=== PATIENT | female | born 1935 | race African-American/Black ===

== ENCOUNTER → 2016-10-21 | Outpatient (CLI) | payer MEDICARE ==
[~2016-10-21] MED LIST: CALCITRIOL0.5 MCG PO; CIPRO PO; ELIQUIS5 MG PO; FUROSEMIDE40 MG PO; GLIPIZIDE 5 MG PO; HYDROCHLOROTHIAZIDE PO; LISINOPRIL PO; LOW DOSE ASPIRI81 M1 PO; METFORMIN 500 MG PO; METOPROLOL TAR25 MG PO; NORCO 5/325 TAB1 TAB PO; NORVASC10 MG PO; PRILOSEC 20 MG PO; SIMVASTATIN40 MG PO; VITAMIN D250000 UNIT PO; ZOCOR 20 MG PO
[2016-10-21 10:38] LABS: HEMATOCRIT 30.1 % (35.0-45.0); HEMOGLOBIN 9.7 gm/dL (12.0-16.0)
== END | disposition home or self-care (01) ==
LOC: CLAB 09:34 → CSSDAY 09:34
PROVIDERS: Internal Medicine Nephrology
DX: N18.4 Chronic kidney disease, stage 4 (severe) (principal); D63.1 Anemia in chronic kidney disease; Z79.899 Other long term (current) drug therapy
CPT/HCPCS: 36415; 85014; 85018; 96372; J0885

== ENCOUNTER → 2016-11-04 | Outpatient (CLI) | payer MEDICARE ==
[2016-11-04 09:42] LABS: HEMATOCRIT 31.7 % (35.0-45.0); HEMOGLOBIN 10.3 gm/dL (12.0-16.0)
== END | disposition home or self-care (01) ==
LOC: CSSDAY 09:17
PROVIDERS: Internal Medicine Nephrology
DX: N18.4 Chronic kidney disease, stage 4 (severe) (principal); D63.1 Anemia in chronic kidney disease; Z79.899 Other long term (current) drug therapy
CPT/HCPCS: 36415; 85014; 85018; 96372; J0885

== ENCOUNTER → 2016-11-18 | Outpatient (CLI) | payer MEDICARE ==
[2016-11-18 09:36] LABS: HEMATOCRIT 32.4 % (35.0-45.0); HEMOGLOBIN 10.5 gm/dL (12.0-16.0)
== END | disposition home or self-care (01) ==
LOC: CSSDAY 08:41
PROVIDERS: Internal Medicine Nephrology
DX: N18.4 Chronic kidney disease, stage 4 (severe) (principal); D63.1 Anemia in chronic kidney disease
CPT/HCPCS: 85014; 85018; 96372; J0885

== ENCOUNTER → 2016-12-02 | Outpatient (CLI) | payer MEDICARE ==
[2016-12-02 09:05] LABS: HEMATOCRIT 34.5 % (35.0-45.0); HEMOGLOBIN 11.3 gm/dL (12.0-16.0)
== END | disposition home or self-care (01) ==
LOC: CSSDAY 08:00
PROVIDERS: Internal Medicine Nephrology
DX: N18.4 Chronic kidney disease, stage 4 (severe) (principal); D63.1 Anemia in chronic kidney disease
CPT/HCPCS: 36415; 85014; 85018; J0885

== ENCOUNTER → 2016-12-16 | Outpatient (CLI) | payer MEDICARE ==
[2016-12-16 09:14] LABS: HEMATOCRIT 34.3 % (35.0-45.0)
== END | disposition home or self-care (01) ==
LOC: CSSDAY 08:46
PROVIDERS: Internal Medicine Nephrology
DX: N18.4 Chronic kidney disease, stage 4 (severe) (principal); D63.1 Anemia in chronic kidney disease; Z79.899 Other long term (current) drug therapy; Z51.81 Encounter for therapeutic drug level monitoring
CPT/HCPCS: 36415; 85014; 85018; J0885

== ENCOUNTER → 2016-12-30 | Outpatient (CLI) | payer MEDICARE ==
[2016-12-30 09:24] LABS: HEMATOCRIT 32.1 % (35.0-45.0); HEMOGLOBIN 10.6 gm/dL (12.0-16.0)
== END | disposition home or self-care (01) ==
LOC: CSSDAY 08:45
PROVIDERS: Internal Medicine Nephrology
DX: N18.4 Chronic kidney disease, stage 4 (severe) (principal); D63.1 Anemia in chronic kidney disease; Z79.899 Other long term (current) drug therapy
CPT/HCPCS: 36415; 85014; 85018; 96372; J0885